=== PATIENT | male | born 1975 | race Caucasian/White ===

== ENCOUNTER 2025-01-03 20:37 | Inpatient (IN) | payer OTHER ==
[~2025-01-03] VITALS: Ht 165.1 cm; Wt 92.5 kg
[2025-01-03] MEDS ORDERED: haloperidoL 5 MG TABLET PO PRN (21:30)
[2025-01-03] MEDS ORDERED: ZOLPIDEM TARTRATE 10 MG TABLET PO PRN (21:30)
[2025-01-03 22:25] VITALS: BP_SYST 108; BP_SYST 156; BP_DIAS 108; PULSE 96; RESP 18; TEMP 97.6; O2SAT 98
[2025-01-03 22:25] LABS: GLUCOMETER DEV NAME(LOC) POC.BV; POC SARS-COV2 AG, FIA NEGATIVE (NEGATIVE)
[2025-01-04 01:59] VITALS: BP 147/102; PULSE 89; RESP 18; TEMP 97.8; O2SAT 97
[2025-01-04] MEDS: LORazepam 2 MG TABLET PO PRN (01:59)
[2025-01-04] MEDS ORDERED: PNEUMOCOCCAL VACCINE POLYVALENT 0.5 ML SYRINGE [PPSV23] IM. ONE (02:00)
[2025-01-04 05:00] VITALS: BP_SYST 135; BP_SYST 147; BP_DIAS 102; BP_DIAS 81; PULSE 89; PULSE 94; RESP 18; RESP 19; TEMP 97.3; TEMP 97.8; O2SAT 97
[2025-01-04 08:11] VITALS: BP 131/90; PULSE 97; RESP 18; TEMP 97.6; O2SAT 99
[2025-01-04] MEDS: METOPROLOL SUCCINATE 25 MG ER TABLET PO SCH (09:00)
[2025-01-04 17:26] VITALS: BP 122/82; RESP 18
[2025-01-04 20:08] VITALS: BP 126/82; PULSE 82; RESP 18; TEMP 97.3; O2SAT 100
[2025-01-05 08:37] VITALS: BP 123/81; PULSE 98; RESP 18; TEMP 97.5; O2SAT 99
== END 2025-01-05 11:42 | disposition home or self-care (01) | DRG 881 ==
LOC: B3A 21:20
PROVIDERS: ADMIT Psychiatry & Neurology Child & Adolescent Psychiatry; ATTEND Psychiatry & Neurology Child & Adolescent Psychiatry
PROC: GZ56ZZZ Individual Psychotherapy, Supportive (ICD-10-PCS; principal; 2025-01-04)
PROC: GZ58ZZZ Individual Psychotherapy, Cognitive-Behavioral (ICD-10-PCS; 2025-01-04)
DX: F32.9 Major depressive disorder, single episode, unspecified (principal); Z20.822 Contact with and (suspected) exposure to COVID-19; F63.81 Intermittent explosive disorder; Z79.899 Other long term (current) drug therapy; Z88.0 Allergy status to penicillin
CPT/HCPCS: Z7610